=== PATIENT | male | born 1940 | race Caucasian/White ===

== ENCOUNTER → 2016-05-03 | Outpatient (CLI) | payer MEDICAID, MEDICARE | LOC: VM.NPLAB 11:58 | PROVIDERS: ATTEND Family Medicine | DX: R05 Cough (principal); R61 Generalized hyperhidrosis; R07.9 Chest pain, unspecified | CPT/HCPCS: 85379 ==

== ENCOUNTER 2017-08-22 08:26 | Emergency (ER) | payer MEDICARE ==
[2017-08-22 09:17] VITALS: BP 132/64
--- NOTE | 2017-08-30 06:02 | EDM.PDOC ---
ED HPI GENERAL MEDICAL PROBLEM - General Chief Complaint: Lower Extremity Injury/Pain Time Seen by Provider: 08/22/17 08:50 Source of Information: Reports: Patient History Limitations: Reports: No Limitations - History of Present Illness INITIAL COMMENTS - FREE TEXT/NARRATIVE: Pt. complains of redness and swelling to L great toe. He has a history of toenail fungus which causes him to have frequent issues with infection of his toes. He has seen podiatry. Podiatry wants pt. to have his toenails removed. Pt. presents to the ER, requesting antifungal treatment for his toenails. Bilateral 1-Hallux Pain Score (Numeric/FACES): 6 - Related Data Allergies Allergy/AdvReac Type Severity Reaction Status Date / Time Barbiturates Allergy Rash Verified 08/22/17 09:00 latex Allergy Rash Verified 06/07/16 11:03 Nitrate Analogues Allergy Other Verified 06/07/16 11:03 potassium Allergy Other Verified 06/07/16 11:03 Sulfa (Sulfonamide Allergy Rash Verified 06/07/16 11:03 Antibiotics) Past Medical History HEENT History: Reports: Cataract Gastrointestinal History: Reports: Chronic Constipation, Other (See Below) Other Gastrointestinal History: chronic digestive problems Musculoskeletal History: Reports: Other (See Below) Other Musculoskeletal History: degen disc disease Neurological History: Reports: Migraines - Past Surgical History HEENT Surgical History: Reports: Adenoidectomy, Tonsillectomy Musculoskeletal Surgical History: Reports: Hip Replacement Social & Family History - Tobacco Use Smoking Status *Q: Never Smoker - Recreational Drug Use Recreational Drug Use: No ED ROS GENERAL - Review of Systems Review Of Systems: See Below Constitutional: Reports: No Symptoms Musculoskeletal: Reports: Other (erythema noted to L great toe with thickening to the toenail) Skin: Reports: No Symptoms Neurological: Reports: No Symptoms ED EXAM, GENERAL - Physical Exam Exam: See Below Exam Limited By: No Limitations General Appearance: Alert, WD/WN Extremities: Other (erythema to L great toe with severe fungal infection noted to the nail. The erythema is isolated to the toe.) Course - Vital Signs Last Recorded V/S: Last Vital Signs Temp 35.9 C 08/22/17 09:02 Pulse 55 L 08/22/17 09:02 Resp 16 08/22/17 09:02 BP 132/64 08/22/17 09:02 Pulse Ox Departure - Departure Time of Disposition: 10:00 Disposition: Home, Self-Care 01 Condition: Good Clinical Impression: Cellulitis of toe of left foot - Discharge Information Instructions: Cellulitis, Adult Referrals: PCP,Not In Area [Primary Care Provider] - Forms: ED Department Discharge Additional Instructions: Augmentin 875mg twice daily for 10 days. Tylenol and ibuprofen for pain. Follow-up with podiatry regarding your toenail fungus.
== END 2017-08-22 09:15 | disposition home or self-care (01) ==
LOC: VM.ED 08:26
DX: L03.116 Cellulitis of left lower limb (principal); Z91.040 Latex allergy status; Z88.2 Allergy status to sulfonamides
CPT/HCPCS: 99282-GF; 99283